=== PATIENT | male | born 1995 | race African-American/Black ===

== ENCOUNTER 2020-02-18 16:23 | Emergency (ER) | payer SELFPAY ==
--- NOTE | ~2020-02-18 | XR_ITS ---
EXAMINATION: XR chest 2V EXAM DATE: 02/18/2020 17:02 INDICATION: Midsternal chest pain, chest tightness for one week. TECHNIQUE: Frontal and lateral projections of the chest obtained and reviewed. There is no prior yen dy for comparison. FINDINGS: The lungs are clear. There are no pleural effusions. The cardiomediastinal silhouette is within normal limits. There is no pneumothorax suspected. The bones and soft tissues are unremarkab le. IMPRESSION: Normal chest x-ray exam. Reviewed, dictated and finalized at location A. IMPRESSION: Normal chest x-ray exam.
[2020-02-18 16:27] VITALS: BP 134/70; PULSE 79; RESP 16; TEMP 36.2; O2SAT 100
--- NOTE | 2020-02-18 16:30 | ECG_ITS ---
Measurements Intervals [place] Rate: 65 P: 41 MS: 174 QRS: 87 QRSD: 106 T: 58 QT: 383 QTc: 399 Interpretive Statements SINUS RHYTHM INCOMPLETE RIGHT BUNDLE BRANCH BLOCK BORDERLINE ECG Electronically Signed On 02-18-2020 17:12:43 CDT by Jacky Davis D.O.
[2020-02-18 16:50] LABS: Basophils Percent Auto 0.4 % (0.2-1.2); Eosinophils Absolute Auto 0.1 K/mm3 (0-0.3); Eosinophils Percent Auto 1.4 % (0-4.4); Hematocrit 46.8 % (42.0-52.0); Immature Granulocyte Absolute 0.02 K/mm3 (0.00-0.031); Immature Granulocyte Percent A 0.3 % (0-0.5); Lymphocytes Absolute Auto 2.32 K/mm3 (0.9-3.2); Mean Corpuscular HGB Conc 32.1 g/dl (32-36); Mean Corpuscular Hemoglobin 27.3 pg (26-34); Mean Corpuscular Volume 85.2 fl (80-100); Mean Platelet Volume 9.9 fl (7.4-10.4); Monocytes Absolute Auto 0.9 K/mm3 (0.1-0.6); Neutrophils Absolute Auto 4.6 K/mm3 (1.3-6.7); Neutrophils Percent Auto 57.9 % (45.5-73.1); Platelet Count Result 353 k/mm3 (150-375); Red Blood Count 5.49 M/mm3 (4.6-6.20); Red Cell Distribution Width 13.3 % (11.5-14.5)
--- NOTE | 2020-02-18 16:55 | ED.ABDPAIN ---
HPI - Abdominal Pain General Chief Complaint: Chest Pain Stated Complaint: CHEST PAIN [id number] Time Seen by Provider: 02/18/20 16:27 Source: patient Mode of arrival: ambulatory Limitations: no limitations History of Present Illness HPI narrative: Patient is a 24-year-old female who presents to emergency department for evaluation of chest pain midsternal left-sided chest for the last week has been constant present every day worse with breathing and movement patient denies URI symptoms vomiting diarrhea or other complaints and is otherwise resting comfortably in the room in no distress has not been seen for this Related Data Allergies Allergy/AdvReac Type Severity Reaction Status Date / Time No Known Allergies Allergy Verified 02/18/20 16:30 Review of Systems Review of Systems: All systems reviewed & are unremarkable except as noted in HPI and below PMFSH Past Medical History Medical History Tonsillitis Social History Social History Smoking status: Never smoker Gender identity (if verbalized by the patient): Male Exam Narrative: Exam Narrative: GENERAL: Well-appearing, well-nourished, and in no acute distress. HEAD: Normocephalic, atraumatic. EYES: PERRLA and EOMI. ENT: Nares clear, no rhinorrhea or epistaxis. Mucous membranes moist. CHEST: Clear to auscultation. No respiratory distress. No wheezes rales or rhonchi HEART: Regular rate and rhythm. No murmur heard. EXTREMITIES: Normal range of motion. No edema. SKIN: Warm, dry, no rash. NEURO: No focal deficits. Alert and oriented x3. PSYCH: Normal mood and affect. Course Course Emergency Course: Patient in the room in no distress no high risk changes in the blood work or imaging patient was made aware of case findings treatment plan and diagnosis Vital Signs Vital signs: Vital Signs Temperature 97.1 F L 02/18/20 16:27 Pulse Rate 79 02/18/20 16:27 Respiratory Rate 16 02/18/20 16:27 Blood Pressure 134/70 02/18/20 16:27 Pulse Oximetry 100 02/18/20 16:27 Temperature 97.1 F L 02/18/20 16:27 Pulse Rate 79 02/18/20 16:27 Respiratory Rate 16 02/18/20 16:27 Blood Pressure 134/70 02/18/20 16:27 Pulse Oximetry 100 02/18/20 16:27 MDM - Abdominal Pain MDM Narrative Medical decision making narrative: Patients EKGs and labs are without significant high risk changes. Cardiac risk factors were reviewed. Patient is felt likely to be low risk for ACS and reasonable for further risk stratification testing as an outpatient. Pain was not sudden or maximal in onset without tearing or ripping. quality. No other signs or symptoms to suggest aortic dissection. A low-risk Wells criteria is noted. PE is felt to be unlikely. No pneumonia or URI symptoms were seen on evaluation today. Patient is felt to b reasonable for continued evaluation as an outpatient. Lab Data Result diagrams: 02/18/20 16:43 02/18/20 16:43 Labs: Lab Results 02/18/20 02/18/20 02/18/20 Range/Units 16:43 16:43 16:43 WBC 8.0 (4.5-10.0) K/mm3 RBC 5.49 (4.6-6.20) M/mm3 Hgb 15.0 (14.0-18.0) g/dL Hct 46.8 (42.0-52.0) % MCV 85.2 (80-100) fl MCH 27.3 (26-34) pg MCHC 32.1 (32-36) g/dl RDW 13.3 (11.5-14.5) % Plt Count 353 (150-375) k/mm3 MPV 9.9 (7.4-10.4) fl Immature Gran % (Auto) 0.3 (0-0.5) % Neut % (Auto) 57.9 (45.5-73.1) % Lymph % (Auto) 29.0 (18.3-44.2) % Dougherty % (Auto) 11.0 H (2.6-8.5) % Eos % (Auto) 1.4 (0-4.4) % Baso % (Auto) 0.4 (0.2-1.2) % Lymph # (Auto) 2.32 (0.9-3.2) K/mm3 Dougherty # (Auto) 0.9 H (0.1-0.6) K/mm3 Eos # (Auto) 0.1 (0-0.3) K/mm3 Baso # (Auto) 0.0 (0.0-0.1) K/mm3 Abs Immat Gran (auto) 0.02 (0.00-0.031) K/mm3 Absolute Neuts (auto) 4.6 (1.3-6.7) K/mm3 Absolute Nucleated RBC 0.0 (0.0-0.012) K/mm3 Nucleated
[2020-02-18 16:59] LABS: Prothrombin Time 12.9 Seconds (11.1-14.7)
[2020-02-18 17:00] LABS: Partial Thromboplastin Time 26.3 SECONDS (22.3-36.8)
[2020-02-18 17:01] LABS: Anion Gap 9 mmol/L (8-16); Blood Urea Nitrogen 16 mg/dL (9-20); Calcium 9.3 mg/dL (8.4-10.2); Carbon Dioxide 29 mmol/L (22-30); Chloride 103 mmol/L (98-107); Estimated CRCL calculation 109 ml/min; Estimated Glomerular Filt Rate > 60; Glucose 87 mg/dL (75-110); Potassium 3.8 mmol/L (3.4-5.0); Sodium 141 mmol/L (137-145)
[2020-02-18 17:13] LABS: Troponin I < 0.012 ng/mL (0.000-0.034)
[2020-02-18 17:40] VITALS: BP 136/90; PULSE 82; RESP 16; O2SAT 98
[2020-02-18 18:18] VITALS: PULSE 87
[2020-02-18 18:23] VITALS: BP 105/66; PULSE 57; RESP 16; O2SAT 98
== END 2020-02-18 18:27 | disposition home or self-care (01) ==
PROVIDERS: Emergency Medicine Emergency Medical Services; Emergency Provider Emergency Medicine
DX: R07.2 Precordial pain (principal); I45.10 Unspecified right bundle-branch block
CPT/HCPCS: 36415; 71046; 80048; 84484; 85025; 85610; 85730; 93005; 99284

== ENCOUNTER 2020-03-14 08:36 | Emergency (ER) | payer SELFPAY ==
[2020-03-14 08:49] VITALS: BP 129/70; PULSE 79; RESP 16; TEMP 38.1; O2SAT 98
--- NOTE | 2020-03-14 08:54 | ED.GENADULT ---
HPI - General Adult General Chief complaint: Upper Respiratory Infection Stated complaint: SORE THROAT Source: patient Mode of arrival: ambulatory Limitations: no limitations History of Present Illness HPI narrative: Patient presents for evaluation of sore throat for the last 5 days. He states he has recurrent tonsillitis and this feels similar. In the past he has taken penicillin which seems to knock it out quickly . He reports subjective fever, chills, nausea, decreased appetite. He denies any otalgia, cough, shortness of breath, diarrhea. No recent identified sick contacts. No known exposures to Covid. He has been alternating Tylenol and ibuprofen which seems to help. States that he hopes to have his tonsils removed in the future Related Data Allergies Allergy/AdvReac Type Severity Reaction Status Date / Time No Known Allergies Allergy Verified 03/14/20 08:57 Review of Systems Review of Systems: Narrative: CONSTITUTIONAL: Reports subjective fever and chills. EYES: Denies visual changes, redness, or discharge. ENT: Denies rhinorrhea, congestion, or otalgia. Reports sore throat CARDIOVASCULAR: Denies chest pain, palpitations, or edema. RESPIRATORY: Denies cough or dyspnea. GASTROINTESTINAL: Denies abdominal pain, vomiting, or diarrhea. Reports nausea GENITOURINARY: Denies dysuria or hematuria. SKIN: Denies rash or itching. MUSCULOSKELETAL: Denies back pain, joint pain, or myalgia. NEUROLOGIC: Denies headache, numbness, dizziness, or weakness. PSYCHIATRIC: Denies anxiety or depression. [facility] Past Medical History Medical History (Updated 03/14/20 @ 08:59 by AJ Pink, ) Tonsillitis Surgical History Surgical History No pertinent past surgical history Family History Family History Mother No pertinent past medical history Father No pertinent past medical history Social History Social History Smoking status: Never smoker Alcohol use details: socially Substance use type: marijuana Living arrangements: other Additional living arrangements comments: lives with girlfriend and her parents Gender identity (if verbalized by the patient): Male Sexual Orientation (if Verbalized by the Patient): Straight or Heterosexual Spiritual care concerns: No Exam Narrative: Exam Narrative: GENERAL: Well-appearing, well-nourished, and in no acute distress. HEAD: Normocephalic, atraumatic. EYES: PERRLA and EOMI. ENT: Nares clear, no rhinorrhea or epistaxis. Mucous membranes moist. Bilateral TMs pearly hinojosa nonbulging. Bilateral tonsillar enlargement with white exudate. No uvular deviation NECK: Supple. No adenopathy or masses. No carotid bruits or JVD CHEST: Clear to auscultation. No respiratory distress. No wheezes rales or rhonchi HEART: Regular rate and rhythm. No murmur heard. Normal peripheral pulses. ABDOMEN: Soft, nontender, nondistended, normal active bowel sounds. EXTREMITIES: Normal range of motion. No edema. SKIN: Warm, dry, no rash. NEURO: No focal deficits. Alert and oriented x3. PSYCH: Normal mood and affect. Course Course Emergency Course: This is a 24-year-old male that presents with sore throat for the last 5 days, along with subjective fever and chills. He has a history of recurrent tonsillitis and current symptoms are similar. Strep and flu were both negative. However his physical exam and reported history are consistent with strep pharyngitis. Historically he has responded well to penicillin so we will place him back on that medication. He can alternate Tylenol and ibuprofen. There is no uvular deviation to suggest peritonsillar abscess. He should follow-up outpatient return for any worsening symptoms. Vital Signs Vital signs: Vital Signs Temperature 38.1 C H 03/14/20 08:49 Pu
== END 2020-03-14 09:11 | disposition home or self-care (01) ==
PROVIDERS: Emergency Provider Nurse Practitioner
DX: J03.90 Acute tonsillitis, unspecified (principal)
CPT/HCPCS: 87081; 87804; 87880; 99213; G0463

== ENCOUNTER 2020-11-19 18:40 | Emergency (ER) | payer SELFPAY ==
--- NOTE | ~2020-11-19 | XR_ITS ---
EXAMINATION: XR ankle LT min 3V EXAM DATE: 11/19/2020 18:58 INDICATION: Initial encounter following injury, with pain of the left ankle. TECHNIQUE: Left ankle frontal, lateral and oblique projections obtained and reviewed. There is no pr ior study for comparison. FINDINGS: The left ankle mortise appears intact. Sequela from old medial malleolar avulsion fractur e. There is soft tissue swelling over the ankle anterolaterally. There are no acute fractures or disl ocations identified. There is no subcutaneous gas. The soft tissue is unremarkable. There are no radiopaque foreign bodies. IMPRESSION: 1. XR ankle LT min 3V exam without acute osseous findings. 2. Soft tissue swelling. Reviewed, dictated and finalized at location A.
--- NOTE | ~2020-11-19 | XR_ITS ---
EXAMINATION: XR foot LT min 3V EXAM DATE: 11/19/2020 21:35 INDICATION: Left foot pain 5th metatarsal, injury this p.m. TECHNIQUE: Left foot dorsoplantar, lateral and oblique projections obtained and reviewed. Correlation is made to left ankle x-ray earlier same date. FINDINGS: Left metatarsal bones unremarkable. There are a couple of tiny ossific densities adjacent to the cuboid bone inferolaterally, probably age indeterminate avulsion fractures. Clinical correlat ion. No other suspicious findings. IMPRESSION: Age-indeterminate cuboid avulsion fractures. Reviewed, dictated and finalized at location A.
[2020-11-19 18:49] VITALS: BP 130/73; PULSE 71; RESP 20; TEMP 36.8; O2SAT 100
[2020-11-19 21:14] VITALS: PULSE 62; RESP 18; O2SAT 100
[2020-11-19 21:16] VITALS: BP 127/78
[2020-11-19] MEDS: KETOROLAC (*BKC) 60 MG/2 ML VIAL IM (21:16)
--- NOTE | 2020-11-19 21:34 | ED.LOWEXIN ---
HPI - Extremity Injury (Lower) General Chief Complaint: Extremity Injury, Lower Stated Complaint: left ankle injury Time Seen by Provider: 11/19/20 20:34 Source: patient Mode of arrival: wheelchair Limitations: no limitations History of Present Illness HPI Narrative: This is a 24 year old male that presents to the ER for left ankle injury sustained just prior to arrival. Reports he was going up for a rebound and landed on the left foot and twisted the ankle. Reports pain and swelling to the lateral ankle and foot. Denies decreased ROM or numbness. Related Data Allergies Allergy/AdvReac Type Severity Reaction Status Date / Time No Known Allergies Allergy Verified 11/19/20 18:41 Review of Systems Review of Systems: Narrative: CONSTITUTIONAL: Denies fever MUSCULOSKELETAL: Reports joint pain, and myalgia. NEUROLOGIC: Denies numbness All systems reviewed & are unremarkable except as noted in HPI and below PMFSH Past Medical History Medical History (Updated 11/19/20 @ 22:31 by Sis Lozada PA-C) Tonsillitis Surgical History Surgical History No pertinent past surgical history Family History Family History Mother No pertinent past medical history Father No pertinent past medical history Social History Social History Smoking status: Never smoker Alcohol use details: socially Substance use type: marijuana Additional living arrangements comments: lives with girlfriend and her parents Gender identity (if verbalized by the patient): Male Spiritual care concerns: No Exam Narrative: Exam Narrative: GENERAL: Well-appearing, well-nourished, and in no acute distress. HEAD: Normocephalic, atraumatic. EYES: EOMI. EXTREMITIES: Normal range of motion. Mild edema about the left lateral malleoli, tender to palpation. Tender to palpation of the left fifth metatarsal. No obvious deformity. Normal DP pulses. Normal sensation SKIN: Warm, dry, no rash. NEURO: No focal deficits. Alert and oriented x3. PSYCH: Normal mood and affect Course Vital Signs Vital signs: Vital Signs Temperature 98.2 F 11/19/20 18:49 Pulse Rate 71 11/19/20 18:49 Respiratory Rate 20 11/19/20 18:49 Blood Pressure 130/73 11/19/20 18:49 Pulse Oximetry 100 11/19/20 18:49 Temperature 98.2 F 11/19/20 18:49 Pulse Rate 62 11/19/20 21:14 Respiratory Rate 18 11/19/20 21:14 Blood Pressure 127/78 11/19/20 21:16 Pulse Oximetry 100 11/19/20 21:14 Procedures Orthopedic Splinting/Casting Injury #1: Splinting/Casting Date: 11/19/20 Splinting/Casting Time: 22:28 Side: left Lower Extremity Injury Location: foot Lower Extremity Immobilizer: posterior splint Splint: customized in ED OCL: short leg Pre-Procedure Neuro Vascular Exam: normal Post-Procedure Neuro Vascular Exam: normal Other Orthopedic Equipment: crutches MDM - Extremity Injury (Lower) MDM Narrative Medical decision making narrative: Patient presents to the emergency department for left foot and ankle pain after an injury today. Left ankle x-rays without acute osseous abnormalities. Left foot x-ray shows age-indeterminate cuboid avulsion fractures. Patient placed in a short leg posterior and given crutches. Will be given orthopedics for follow-up. He was given warnings to return to the ER Imaging Data Radiologist's impression: ITS Impressions Ankle X-Ray 11/19/20 19:07 IMPRESSION: 1. XR ankle LT min 3V exam without acute osseous findings. 2. Soft tissue swelling. Foot X-Ray 11/19/20 21:37 IMPRESSION: Age-indeterminate cuboid avulsion fractures. Critical Care Time Critical Care Time Critical Care Time: No Discharge Plan Discharge Clinical Impression: Fracture
[2020-11-19 22:46] VITALS: BP 137/71; PULSE 60; RESP 18; O2SAT 100
== END 2020-11-19 22:48 | disposition home or self-care (01) ==
PROVIDERS: Emergency Provider Emergency Medicine
DX: S92.212A Displaced fracture of cuboid bone of left foot, initial encounter for closed fracture (principal); X50.9XXA Other and unspecified overexertion or strenuous movements or postures, initial encounter; Y93.67 Activity, basketball
CPT/HCPCS: 29515; 73610; 73630; 96372; 99284; J1885